=== PATIENT | female | born 1955 | race Caucasian/White ===

== ENCOUNTER 2017-07-18 09:11 | Inpatient (IN) | payer OTHER ==
[~2017-07-18] VITALS: Ht 162.6 cm; Wt 81.8 kg
[~2017-07-18 09:11] MED LIST: ADVAIR; ADVAIR 250/501 DISK IH; ADVAIR HFA120 INHALA; AMBIEN CR12.5 MG PO; ASPIR 8181 MG PO; ASPIRIN E.C.81 M1 PO; Advair HFA 115/21 IH; Benadryl PO; CEFUROXIME500 MG; CELEXA20 MG PO; CITALOPRAM HBR20 M1 PO; CRESTOR20 MG PO; CRESTOR40 MG PO; CYMBALTA60 MG PO; DIOVAN; DIOVAN HCT 11 TABLE1 PO; DIOVAN HCT 1601 EAC1; DIOVAN HCT 1601 EAC1 PO; DIOVAN160 MG PO; Desyrel PO; FLOVENT 11120 INHALA IH; GLUCOPHAGE500 MG PO; Hydrodiuril,Oretic,E PO; LEVOTHROID,S0.175 M1 PO; Lactinex,Floranex PO; Levothroid,Synthroid PO; METFORMIN; PROVENTIL,2.5 MG/0.5 IH; Pepcid PO; SYNTHROID137 MCG PO; TRAMADOL-ACETA1 EACH PO; TRAZODONE HCL150 MG PO; TRAZODONE HCL50 MG PO; TRILIPIX135 MG PO; Tylenol Regular Stre PO; ULTRAM50 MG PO; VENTOLIN HFA18 GM IH; VITAMIN D1000 UNIT; Zithromax PO; celeXA PO; predniSONE PO
[2017-07-18 10:29] LABS: ALBUMIN 4.1 g/dL (3.2-4.8); CHLORIDE 104 mEq/L (99-109); POTASSIUM 4.4 mEq/L (3.7-5.4); SODIUM 142 mEq/L (136-147)
[2017-07-18 10:31] LABS: APPEARANCE SL.HAZY ((CLEAR)); BILIRUBIN NEGATIVE; BLOOD NEGATIVE; COLOR YELLOW ((YELLOW)); GLUCOSE (STRIP) NEGATIVE; KETONES NEGATIVE; LEUKOCYTES SMALL; NITRITE NEGATIVE; PROTEIN (STRIP) NEGATIVE; SPECIFIC GRAVITY 1.013 (1.000-1.030); UROBILINOGEN 0.2 MG/DL (0.2-1.0)
[2017-07-18 10:32] LABS: GLUCOSE 132 mg/dL (70-99); TOTAL PROTEIN 7.3 g/dL (6.4-8.3)
[2017-07-18 10:33] LABS: TOTAL BILIRUBIN 0.4 mg/dL (0.0-1.0)
[2017-07-18 10:35] LABS: ALKALINE PHOSPHATASE 135 IU/L (3-129); CREATININE 0.7 mg/dL (0.6-1.3); GFR ESTIMATE (CALCULATED) > 59 mL/min/
[2017-07-18 10:36] LABS: BACTERIA RARE /HPF; EPITHELIAL CELLS 1+ /HPF; MUCUS 2+ /LPF; UCUL ADDED? YES
[2017-07-18 10:36] LABS: UREA NITROGEN (BUN) 14 mg/dL (9-23)
[2017-07-18 10:37] LABS: AST (GOT) 19 IU/L (2-34)
[2017-07-18 10:38] LABS: ALT (GPT) 15 IU/L (3-49)
[2017-07-18 10:41] LABS: TROP-I INTERPRETATION NEGATIVE; TROPONIN-I 0.21 ng/mL (0.0-0.30)
[2017-07-18 10:44] LABS: BASOPHIL (%) 0.7 % (0-1); BASOPHIL COUNT 0.1 K/uL (0-0.1); EOSINOPHIL (%) 0.2 % (0-5); HEMATOCRIT 37.1 % (36.0-46.0); HEMOGLOBIN 12.2 G/DL (11.9-15.5); IMMATURE GRANULOCYTE (%) 0.4 % (0.0-0.7); LYMPHOCYTE COUNT 0.9 K/uL (1.0-2.8); MCH 26.9 PG (29.0-34.0); MCHC 32.9 G/DL (30.0-36.0); MCV 81.7 FL (83-99); MONOCYTE (%) 2.3 % (3-12); MONOCYTE COUNT 0.3 K/uL (0-0.8); NEUTROPHIL (%) 88.4 % (45-76); NEUTROPHIL COUNT 10.2 K/uL (1.8-6.4); NRBC (%) 0.3 /100 WBC (0-0); PLATELET COUNT 343 K/uL (156-360); RBC DIS.WIDTH-SD 44.7 % (39-53); RED BLOOD COUNT 4.54 M/uL (3.80-5.20); WHITE BLOOD COUNT 11.6 K/uL (4.1-10.2)
[2017-07-18 11:46] LABS: INTER. NORMALIZED RATIO 1.2
[2017-07-18 11:49] LABS: PTT 29.9 SEC (25-37)
[2017-07-18] MEDS ORDERED: VENTOLIN HFA18 GM IH (15:30)
[2017-07-18] MEDS ORDERED: CRESTOR10 MG PO (15:30)
[2017-07-18] MEDS ORDERED: MULTI VITAMIN1 EACH PO (15:33)
[2017-07-18] MEDS ORDERED: DESYREL100 MG PO (15:36)
[2017-07-18] MEDS ORDERED: NEURONTIN400 MG PO (15:37)
[2017-07-18] MEDS ORDERED: AMARYL2 MG PO (15:38)
[2017-07-18] MEDS ORDERED: ZOLOFT100 MG PO (15:38)
[2017-07-18] MEDS ORDERED: MOBIC15 MG PO (15:39)
[2017-07-18] MEDS ORDERED: JANUVIA100 MG PO (15:39)
[2017-07-18] MEDS ORDERED: SINGULAIR10 MG PO (15:40)
[2017-07-18] MEDS ORDERED: SYNTHROID137 MCG PO (15:40)
[2017-07-18 17:42] VITALS: BP 167/73
[2017-07-18 18:07] VITALS: BP 167/73
[2017-07-18 18:58] VITALS: BP 168/56
[2017-07-18 22:49] VITALS: BP 165/71
[2017-07-19 02:28] LABS: INTER. NORMALIZED RATIO 1.2
[2017-07-19 02:30] LABS: PTT 50.1 SEC (25-37)
[2017-07-19 03:23] VITALS: BP 136/74
[2017-07-19 07:02] VITALS: BP 154/68
[2017-07-19 08:41] LABS: BASOPHIL (%) 0.1 % (0-1); EOSINOPHIL (%) 0.1 % (0-5); HEMOGLOBIN 12.8 G/DL (11.9-15.5); IMMATURE GRANULOCYTE (%) 0.5 % (0.0-0.7); LYMPHOCYTE (%) 6.5 % (15-42); MCH 26.2 PG (29.0-34.0); MONOCYTE (%) 3.2 % (3-12); MONOCYTE COUNT 0.5 K/uL (0-0.8); NEUTROPHIL (%) 89.6 % (45-76); NEUTROPHIL COUNT 13.7 K/uL (1.8-6.4); PLATELET COUNT 367 K/uL (156-360); RBC DIS.WIDTH-CV 15.1 % (11.8-14.6); RBC DIS.WIDTH-SD 45.4 % (39-53); RED BLOOD COUNT 4.88 M/uL (3.80-5.20); WHITE BLOOD COUNT 15.3 K/uL (4.1-10.2)
[2017-07-19 08:45] LABS: INTER. NORMALIZED RATIO 1.1
[2017-07-19 08:52] LABS: PTT 27.2 SEC (25-37)
[2017-07-19 09:17] LABS: ALBUMIN 3.7 G/DL (3.2-4.8); ALKALINE PHOSPHATASE 103 IU/L (3-129); ALT (GPT) 11 IU/L (3-49); AST (GOT) 14 IU/L (2-34); CHLORIDE 107 MEQ/L (99-109); CREATININE 0.5 MG/DL (0.6-1.3); GFR ESTIMATE (CALCULATED) > 59 mL/min/; GLUCOSE 136 mg/dL (70-99); POTASSIUM 3.7 MEQ/L (3.7-5.4); SODIUM 142 MEQ/L (136-147); TOTAL BILIRUBIN 0.3 MG/DL (0.0-1.0); TOTAL PROTEIN 7.3 G/DL (6.4-8.3); UREA NITROGEN (BUN) 10 mg/dL (9-23)
[2017-07-19 12:45] VITALS: BP 125/58
[2017-07-19 15:28] VITALS: BP 143/63
[2017-07-19 19:19] VITALS: BP 157/66
[2017-07-19 22:44] VITALS: BP 152/67
[2017-07-20 04:17] VITALS: BP 184/82
[2017-07-20 06:14] LABS: HEMATOCRIT 36.6 % (36.0-46.0); HEMOGLOBIN 11.3 G/DL (11.9-15.5); MCH 25.6 PG (29.0-34.0); MCHC 30.9 G/DL (30.0-36.0); PLATELET COUNT 348 K/uL (156-360); RBC DIS.WIDTH-CV 14.9 % (11.8-14.6); RBC DIS.WIDTH-SD 45.4 % (39-53); RED BLOOD COUNT 4.41 M/uL (3.80-5.20); WHITE BLOOD COUNT 24.8 K/uL (4.1-10.2)
[2017-07-20 06:38] LABS: CHLORIDE 104 MEQ/L (99-109); CREATININE 0.6 MG/DL (0.6-1.3); GFR ESTIMATE (CALCULATED) > 59 mL/min/; GLUCOSE 190 mg/dL (70-99); SODIUM 143 MEQ/L (136-147); UREA NITROGEN (BUN) 12 mg/dL (9-23)
[2017-07-20 08:00] VITALS: BP 162/69
[2017-07-20] MEDS ORDERED: ASPIR-LOW81 MG PO (11:57)
[2017-07-20] MEDS ORDERED: AUGMENTIN875 MG PO (11:58)
[2017-07-20] MEDS ORDERED: LOVENOX80 MG/0.8 SC (11:58)
[2017-07-20] MEDS ORDERED: NORVASC5 MG PO (12:03)
[2017-07-20 12:25] VITALS: BP 142/66
== END 2017-07-20 14:00 | disposition home or self-care (01) | DRG 987 ==
LOC: EME 09:11 → EDOF 13:15 → 5EAST 13:15 → ENRESERV 13:21 → EDOF 13:22 → ENRESERV 14:52 → 5EAST 16:50
PROVIDERS: Emergency Medicine; Family Medicine; Physician Assistant; Surgery
PROC: 07B10ZX Excision of Right Neck Lymphatic, Open Approach, Diagnostic (ICD-10-PCS; principal; 2017-07-19)
DX: C34.91 Malignant neoplasm of unspecified part of right bronchus or lung (principal); J18.9 Pneumonia, unspecified organism; J44.0 Chronic obstructive pulmonary disease with (acute) lower respiratory infection; J44.1 Chronic obstructive pulmonary disease with (acute) exacerbation; G47.33 Obstructive sleep apnea (adult) (pediatric); I10 Essential (primary) hypertension; E78.5 Hyperlipidemia, unspecified; F17.210 Nicotine dependence, cigarettes, uncomplicated; F32.9 Major depressive disorder, single episode, unspecified; F41.9 Anxiety disorder, unspecified; E03.9 Hypothyroidism, unspecified; J90 Pleural effusion, not elsewhere classified; I74.2 Embolism and thrombosis of arteries of the upper extremities; D68.59 Other primary thrombophilia; R16.0 Hepatomegaly, not elsewhere classified; C79.31 Secondary malignant neoplasm of brain
CPT/HCPCS: 70553; 71046; 71275; 74177; 80048; 80053; 80076; 81003; 82948; 83605; 83880; 84484; 85025; 85027; 85610; 85730; 87040; 87086; 87449; 87502; 88305; 88341 TC; 88342 TC; 93005; 93931; 94640; 94640 76; 94799; 99202; 99281; 99285; J0295; J0330; J0456; J0690; J0696; J1100; J1170; J1650; J2250; J2405; J2765; J2930; J7050; J7120; J7643; S0020

== ENCOUNTER 2017-07-21 12:41 | Inpatient (IN) | payer OTHER ==
[~2017-07-21] VITALS: Ht 162.6 cm; Wt 81.2 kg
[~2017-07-21 12:41] MED LIST changes: +AMARYL2 MG PO; +ASPIR-LOW81 MG PO; +AUGMENTIN875 MG PO; +CRESTOR10 MG PO; +DESYREL100 MG PO; +JANUVIA100 MG PO; +LOVENOX80 MG/0.8 SC; +MOBIC15 MG PO; +MULTI VITAMIN1 EACH PO; +NEURONTIN400 MG PO; +NORVASC5 MG PO; +SINGULAIR10 MG PO; +ZOLOFT100 MG PO
[2017-07-21 13:47] LABS: BASOPHIL (%) 0.4 % (0-1); BASOPHIL COUNT 0.1 K/uL (0-0.1); EOSINOPHIL (%) 0.7 % (0-5); EOSINOPHIL COUNT 0.1 K/uL (0-0.3); HEMATOCRIT 38.8 % (36.0-46.0); HEMOGLOBIN 12.3 G/DL (11.9-15.5); IMMATURE GRANULOCYTE (%) 0.9 % (0.0-0.7); LYMPHOCYTE (%) 13.8 % (15-42); LYMPHOCYTE COUNT 2.3 K/uL (1.0-2.8); MCH 26.1 PG (29.0-34.0); MCHC 31.7 G/DL (30.0-36.0); MCV 82.4 FL (83-99); MONOCYTE (%) 5.8 % (3-12); MONOCYTE COUNT 0.9 K/uL (0-0.8); NEUTROPHIL (%) 78.4 % (45-76); NEUTROPHIL COUNT 12.8 K/uL (1.8-6.4); PLATELET COUNT 350 K/uL (156-360); RBC DIS.WIDTH-CV 15.1 % (11.8-14.6); RBC DIS.WIDTH-SD 45.6 % (39-53); RED BLOOD COUNT 4.71 M/uL (3.80-5.20); WHITE BLOOD COUNT 16.3 K/uL (4.1-10.2)
[2017-07-21 13:55] LABS: INTER. NORMALIZED RATIO 1.2
[2017-07-21 13:56] LABS: ALBUMIN 3.9 g/dL (3.2-4.8); CHLORIDE 102 mEq/L (99-109); POTASSIUM 3.2 mEq/L (3.7-5.4); SODIUM 143 mEq/L (136-147)
[2017-07-21 13:57] LABS: PTT 37.9 SEC (25-37)
[2017-07-21 13:59] LABS: TOTAL PROTEIN 7.1 g/dL (6.4-8.3)
[2017-07-21 14:01] LABS: GLUCOSE 73 mg/dL (70-99); TOTAL BILIRUBIN 0.3 mg/dL (0.0-1.0)
[2017-07-21 14:02] LABS: ALKALINE PHOSPHATASE 122 IU/L (3-129); CREATININE 0.8 mg/dL (0.6-1.3); GFR ESTIMATE (CALCULATED) > 59 mL/min/
[2017-07-21 14:04] LABS: AST (GOT) 17 IU/L (2-34); UREA NITROGEN (BUN) 15 mg/dL (9-23)
[2017-07-21 14:05] LABS: ALT (GPT) 16 IU/L (3-49)
[2017-07-21 14:07] LABS: TROP-I INTERPRETATION NEGATIVE; TROPONIN-I 0.14 ng/mL (0.0-0.30)
[2017-07-21 20:03] LABS: TROP-I INTERPRETATION NEGATIVE; TROPONIN-I 0.13 ng/mL (0.0-0.30)
[2017-07-21 21:38] VITALS: BP 156/69
[2017-07-22] VITALS (8 sets, daily range): BP systolic 113–182; BP diastolic 57–74
[2017-07-22 02:16] LABS: TROP-I INTERPRETATION NEGATIVE
[2017-07-22 04:07] LABS: HEMATOCRIT 38.4 % (36.0-46.0); HEMOGLOBIN 12.4 G/DL (11.9-15.5); MCH 26.7 PG (29.0-34.0); MCHC 32.3 G/DL (30.0-36.0); MCV 82.8 FL (83-99); PLATELET COUNT 353 K/uL (156-360); RBC DIS.WIDTH-CV 15.4 % (11.8-14.6); RBC DIS.WIDTH-SD 46.4 % (39-53); RED BLOOD COUNT 4.64 M/uL (3.80-5.20); WHITE BLOOD COUNT 12.6 K/uL (4.1-10.2)
[2017-07-22 04:28] LABS: CHLORIDE 102 mEq/L (99-109); POTASSIUM 3.4 mEq/L (3.7-5.4); SODIUM 144 mEq/L (136-147)
[2017-07-22 04:34] LABS: CREATININE 0.6 mg/dL (0.6-1.3); GFR ESTIMATE (CALCULATED) > 59 mL/min/
[2017-07-22 04:35] LABS: UREA NITROGEN (BUN) 15 mg/dL (9-23)
[2017-07-22 04:38] LABS: GLUCOSE 129 mg/dL (70-99)
[2017-07-23 07:17] LABS: HEMATOCRIT 45.8 % (36.0-46.0); MCH 25.5 PG (29.0-34.0); MCHC 30.6 G/DL (30.0-36.0); MCV 83.4 FL (83-99); PLATELET COUNT 377 K/uL (156-360); RBC DIS.WIDTH-CV 15.2 % (11.8-14.6); RED BLOOD COUNT 5.49 M/uL (3.80-5.20); WHITE BLOOD COUNT 14.9 K/uL (4.1-10.2)
[2017-07-23 07:20] VITALS: BP 131/61
[2017-07-23 10:56] LABS: CHLORIDE 102 MEQ/L (99-109); CREATININE 0.6 MG/DL (0.6-1.3); GFR ESTIMATE (CALCULATED) > 59 mL/min/; GLUCOSE 206 mg/dL (70-99); POTASSIUM 3.3 MEQ/L (3.7-5.4); SODIUM 140 MEQ/L (136-147); UREA NITROGEN (BUN) 14 mg/dL (9-23)
[2017-07-23 13:00] LABS: C DIFF TOXIN NEGATIVE (NEGATIVE)
[2017-07-23 16:10] VITALS: BP 127/61
[2017-07-23 23:37] VITALS: BP 141/65
[2017-07-24 03:12] LABS: HEMATOCRIT 35.8 % (36.0-46.0); HEMOGLOBIN 11.3 G/DL (11.9-15.5); MCH 26.3 PG (29.0-34.0); MCHC 31.6 G/DL (30.0-36.0); MCV 83.3 FL (83-99); PLATELET COUNT 335 K/uL (156-360); RBC DIS.WIDTH-CV 15.6 % (11.8-14.6); RBC DIS.WIDTH-SD 46.9 % (39-53); WHITE BLOOD COUNT 14.8 K/uL (4.1-10.2)
[2017-07-24 03:22] LABS: INTER. NORMALIZED RATIO 1.2
[2017-07-24 03:33] LABS: CHLORIDE 104 mEq/L (99-109); POTASSIUM 3.7 mEq/L (3.7-5.4); SODIUM 142 mEq/L (136-147)
[2017-07-24 03:35] LABS: GLUCOSE 139 mg/dL (70-99)
[2017-07-24 03:38] LABS: CREATININE 0.7 mg/dL (0.6-1.3); GFR ESTIMATE (CALCULATED) > 59 mL/min/
[2017-07-24 03:39] LABS: UREA NITROGEN (BUN) 12 mg/dL (9-23)
[2017-07-24 05:01] VITALS: BP 81/53
[2017-07-24 06:38] LABS: INTER. NORMALIZED RATIO 1.2
[2017-07-24 06:41] LABS: PTT 58.1 SEC (25-37)
[2017-07-24 07:20] VITALS: BP 127/58
[2017-07-24 10:31] LABS: APPEARANCE SL.HAZY ((CLEAR)); BILIRUBIN NEGATIVE; BLOOD SMALL; COLOR YELLOW ((YELLOW)); GLUCOSE (STRIP) NEGATIVE; KETONES NEGATIVE; LEUKOCYTES MODERATE; NITRITE NEGATIVE; PROTEIN (STRIP) NEGATIVE; SPECIFIC GRAVITY 1.015 (1.000-1.030); UROBILINOGEN 0.2 MG/DL (0.2-1.0)
[2017-07-24 10:43] LABS: BACTERIA RARE /HPF; EPITHELIAL CELLS 2+ /HPF; MUCUS TRACE /LPF; RED BLOOD CELLS 0-5 /HPF (0-5); UCUL ADDED? YES; WHITE BLOOD CELLS 15-20 /HPF (0-5)
[2017-07-24 11:03] VITALS: BP 139/65
[2017-07-24 17:00] VITALS: BP 143/87
[2017-07-25] VITALS: BP 153/70
[2017-07-25 06:31] LABS: HEMATOCRIT 35.5 % (36.0-46.0); HEMOGLOBIN 11.2 G/DL (11.9-15.5); MCH 26.2 PG (29.0-34.0); MCHC 31.5 G/DL (30.0-36.0); MCV 83.1 FL (83-99); PLATELET COUNT 301 K/uL (156-360); RBC DIS.WIDTH-CV 15.9 % (11.8-14.6); RBC DIS.WIDTH-SD 48.3 % (39-53); RED BLOOD COUNT 4.27 M/uL (3.80-5.20); WHITE BLOOD COUNT 14.4 K/uL (4.1-10.2)
[2017-07-25 06:42] LABS: INTER. NORMALIZED RATIO 1.4
[2017-07-25 06:50] LABS: PTT 31.8 SEC (25-37)
[2017-07-25 07:05] VITALS: BP 135/65
[2017-07-25 13:12] LABS: INTER. NORMALIZED RATIO 1.6
[2017-07-25 13:15] LABS: PTT 32.1 SEC (25-37)
[2017-07-25 15:00] VITALS: BP 160/70
[2017-07-25 18:38] LABS: INTER. NORMALIZED RATIO 1.7
[2017-07-25 18:41] LABS: PTT 36.4 SEC (25-37)
[2017-07-25 23:59] VITALS: BP 129/60
[2017-07-26 07:29] LABS: PTT 44.4 SEC (25-37)
[2017-07-26 07:45] VITALS: BP 120/60
[2017-07-26 08:36] LABS: BASOPHIL (%) 0.2 % (0-1); EOSINOPHIL (%) 0 % (0-5); HEMATOCRIT 36.3 % (36.0-46.0); HEMOGLOBIN 11.4 G/DL (11.9-15.5); IMMATURE GRANULOCYTE (%) 0.8 % (0.0-0.7); LYMPHOCYTE (%) 3.7 % (15-42); LYMPHOCYTE COUNT 0.7 K/uL (1.0-2.8); MCH 26.3 PG (29.0-34.0); MCHC 31.4 G/DL (30.0-36.0); MCV 83.6 FL (83-99); MONOCYTE (%) 6.3 % (3-12); MONOCYTE COUNT 1.2 K/uL (0-0.8); NEUTROPHIL COUNT 16.5 K/uL (1.8-6.4); PLATELET COUNT 231 K/uL (156-360); RBC DIS.WIDTH-CV 15.4 % (11.8-14.6); RBC DIS.WIDTH-SD 47.1 % (39-53); RED BLOOD COUNT 4.34 M/uL (3.80-5.20); WHITE BLOOD COUNT 18.6 K/uL (4.1-10.2)
[2017-07-26 08:48] LABS: CHLORIDE 103 MEQ/L (99-109); CREATININE 0.6 MG/DL (0.6-1.3); GFR ESTIMATE (CALCULATED) > 59 mL/min/; GLUCOSE 173 mg/dL (70-99); MAGNESIUM 2.3 mg/dl (1.3-2.7); PHOSPHORUS 4.4 mg/dL (2.5-4.9); POTASSIUM 4.3 MEQ/L (3.7-5.4); SODIUM 140 MEQ/L (136-147); UREA NITROGEN (BUN) 12 mg/dL (9-23)
[2017-07-26 11:00] VITALS: BP 127/60
[2017-07-26 14:51] LABS: INTER. NORMALIZED RATIO 2.3
[2017-07-26 14:54] LABS: PTT 35.4 SEC (25-37)
[2017-07-26 15:00] VITALS: BP 134/68
[2017-07-26 20:01] LABS: INTER. NORMALIZED RATIO 2.9
[2017-07-26 20:11] LABS: PTT 105.8 SEC (25-37)
[2017-07-26 23:27] VITALS: BP 156/66
[2017-07-27] VITALS (17 sets, daily range): BP systolic 90–171; BP diastolic 50–74
[2017-07-27 13:20] LABS: BASE EXCESS 3.6 mEq/L (-3 to +3); BICARBONATE 30.8 mEq/L (22-26); CARBOXY HGB 2.4 % (0-5); METHEMOGLOBIN 1.7 % (0-1.5); PCO2 57 mm Hg (35-45); PO2 51 mm Hg (80-100); pH 7.34 (7.35-7.45)
[2017-07-27 13:21] LABS: COMMENTS - BLOOD GASES A+C+; DEVICE HFNC; O2 FLOW 12 L/MIN; SITE LR
[2017-07-27 13:51] LABS: HEMATOCRIT 38.9 % (36.0-46.0); HEMOGLOBIN 12.3 G/DL (11.9-15.5); MCH 26.3 PG (29.0-34.0); MCHC 31.6 G/DL (30.0-36.0); MCV 83.3 FL (83-99); RBC DIS.WIDTH-CV 15.7 % (11.8-14.6); RBC DIS.WIDTH-SD 47.4 % (39-53); RED BLOOD COUNT 4.67 M/uL (3.80-5.20); WHITE BLOOD COUNT 13.6 K/uL (4.1-10.2)
[2017-07-27 13:58] LABS: ALBUMIN 3.6 g/dL (3.2-4.8)
[2017-07-27 13:59] LABS: CHLORIDE 99 mEq/L (99-109); SODIUM 141 mEq/L (136-147)
[2017-07-27 14:01] LABS: TOTAL PROTEIN 6.6 g/dL (6.4-8.3)
[2017-07-27 14:04] LABS: ALKALINE PHOSPHATASE 118 IU/L (3-129)
[2017-07-27 14:05] LABS: CREATININE 0.8 mg/dL (0.6-1.3); GFR ESTIMATE (CALCULATED) > 59 mL/min/
[2017-07-27 14:06] LABS: UREA NITROGEN (BUN) 17 mg/dL (9-23)
[2017-07-27 14:07] LABS: AST (GOT) 34 IU/L (2-34); GLUCOSE 95 mg/dL (70-99); TOTAL BILIRUBIN 0.9 mg/dL (0.0-1.0)
[2017-07-27 14:08] LABS: ALT (GPT) 23 IU/L (3-49)
[2017-07-27 14:10] LABS: TROP-I INTERPRETATION NEGATIVE; TROPONIN-I 0.14 ng/mL (0.0-0.30)
[2017-07-27 14:30] LABS: PLAT.SUFFICIENCY DECREASED
[2017-07-27 14:59] LABS: PLATELET COUNT 60 K/uL (156-360)
[2017-07-27 16:20] LABS: PTT 50.7 SEC (25-37)
[2017-07-28] VITALS (12 sets, daily range): BP systolic 104–158; BP diastolic 48–75
[2017-07-28 06:49] LABS: INTER. NORMALIZED RATIO 3.1
[2017-07-28 06:54] LABS: BASOPHIL (%) 0.2 % (0-1); EOSINOPHIL (%) 1.5 % (0-5); EOSINOPHIL COUNT 0.2 K/uL (0-0.3); HEMATOCRIT 32.4 % (36.0-46.0); IMMATURE GRANULOCYTE (%) 0.5 % (0.0-0.7); LYMPHOCYTE (%) 3.4 % (15-42); LYMPHOCYTE COUNT 0.5 K/uL (1.0-2.8); MCH 25.6 PG (29.0-34.0); MCHC 30.6 G/DL (30.0-36.0); MCV 83.7 FL (83-99); MONOCYTE (%) 1.4 % (3-12); MONOCYTE COUNT 0.2 K/uL (0-0.8); NEUTROPHIL COUNT 12.9 K/uL (1.8-6.4); RBC DIS.WIDTH-CV 15.8 % (11.8-14.6); RED BLOOD COUNT 3.87 M/uL (3.80-5.20); WHITE BLOOD COUNT 13.8 K/uL (4.1-10.2)
[2017-07-28 06:55] LABS: HEMOGLOBIN 9.9 G/DL (11.9-15.5)
[2017-07-28 07:19] LABS: IMM.PLATELET FRACTION 5.8 (1-7); PLAT.SUFFICIENCY DECREASED; PLATELET COUNT 49 K/uL (156-360)
[2017-07-28 08:05] LABS: ALBUMIN 3.2 G/DL (3.2-4.8); ALKALINE PHOSPHATASE 82 IU/L (3-129); ALT (GPT) 18 IU/L (3-49); AST (GOT) 26 IU/L (2-34); CHLORIDE 98 MEQ/L (99-109); GLUCOSE 123 mg/dL (70-99); POTASSIUM 4.5 MEQ/L (3.7-5.4); SODIUM 137 MEQ/L (136-147); TOTAL BILIRUBIN 0.5 MG/DL (0.0-1.0); TOTAL PROTEIN 6.1 G/DL (6.4-8.3)
[2017-07-28 08:07] LABS: CREATININE 2.6 MG/DL (0.6-1.3); GFR ESTIMATE (CALCULATED) 20 mL/min/; UREA NITROGEN (BUN) 38 mg/dL (9-23)
[2017-07-28 08:49] LABS: INTER. NORMALIZED RATIO 4.3
[2017-07-28 08:52] LABS: PTT 84.8 SEC (25-37)
[2017-07-28 09:31] LABS: FIBRINOGEN 202 mg/dL (150-450)
[2017-07-29 13:40] LABS: Heparin Induced Plt Ab Positive (Negative)
[2017-07-30 15:19] LABS: ADD PTT REFLEX? Y; PTT-LA 185 sec (<=40)
[2017-07-30 17:36] LABS: UFH SRA Result POSITIVE (Negative)
== END 2017-07-28 11:03 | disposition short-term general hospital (02) | DRG 299 ==
LOC: EME 12:41 → 5EAST 15:12 → EDOF 15:12 → ENRESERV 15:15 → 5EAST 20:20 → ENRESERV 07-27 13:44 → 4WEST 07-27 13:47 → ENRESERV 07-27 15:38 → CANRESERV 07-27 15:38 → 4WEST 07-27 16:37
PROVIDERS: Emergency Medicine; Hospitalist; Internal Medicine; Internal Medicine Critical Care Medicine; Internal Medicine Medical Oncology; Surgery
PROC: 02HV33Z Insertion of Infusion Device into Superior Vena Cava, Percutaneous Approach (ICD-10-PCS; principal; 2017-07-24)
PROC: 0JH63XZ Insertion of Tunneled Vascular Access Device into Chest Subcutaneous Tissue and Fascia, Percutaneous Approach (ICD-10-PCS; principal; 2017-07-24)
PROC: 3E04305 Introduction of Other Antineoplastic into Central Vein, Percutaneous Approach (ICD-10-PCS; 2017-07-25)
PROC: 30233K1 Transfusion of Nonautologous Frozen Plasma into Peripheral Vein, Percutaneous Approach (ICD-10-PCS; 2017-07-27)
DX: I74.2 Embolism and thrombosis of arteries of the upper extremities (principal); J18.9 Pneumonia, unspecified organism; J44.0 Chronic obstructive pulmonary disease with (acute) lower respiratory infection; J44.1 Chronic obstructive pulmonary disease with (acute) exacerbation; I63.9 Cerebral infarction, unspecified; J96.01 Acute respiratory failure with hypoxia; D65 Disseminated intravascular coagulation [defibrination syndrome]; D75.82 Heparin induced thrombocytopenia (HIT); M31.1 Thrombotic microangiopathy; D59.3 Hemolytic-uremic syndrome; C78.7 Secondary malignant neoplasm of liver and intrahepatic bile duct; C77.8 Secondary and unspecified malignant neoplasm of lymph nodes of multiple regions; C79.31 Secondary malignant neoplasm of brain; C34.11 Malignant neoplasm of upper lobe, right bronchus or lung; E87.6 Hypokalemia; R07.89 Other chest pain; I10 Essential (primary) hypertension; E11.9 Type 2 diabetes mellitus without complications; E78.5 Hyperlipidemia, unspecified; F41.9 Anxiety disorder, unspecified; G47.33 Obstructive sleep apnea (adult) (pediatric); E03.9 Hypothyroidism, unspecified; I87.8 Other specified disorders of veins; F32.9 Major depressive disorder, single episode, unspecified; F17.210 Nicotine dependence, cigarettes, uncomplicated; Z66 Do not resuscitate; Z79.84 Long term (current) use of oral hypoglycemic drugs; Z86.73 Personal history of transient ischemic attack (TIA), and cerebral infarction without residual deficits; Z92.21 Personal history of antineoplastic chemotherapy
CPT/HCPCS: 36600; 71045; 74176; 76604; 80048; 80053; 81003; 82232; 82803; 82948; 83605; 83735; 84100; 84145 90; 84484; 85025; 85027; 85384; 85597 90; 85610; 85613 90; 85730; 85730 90; 86022 90; 86146 90; 86147 90; 86850; 86900; 86901; 87040; 87086; 87493; 87641; 93005; 93306; 93971; 94640; 94640 76; 94799; 99202; 99281; 99285; C1751; J0690; J0696; J0883; J1100; J1170; J1815; J2250; J2405; J2469; J2543; J3010; J3420; J3430; J7030; J7050; J9045; J9305; P9017; S0073